=== PATIENT | male | born 1945 | race Caucasian/White ===

== ENCOUNTER 2021-01-10 21:12 | Inpatient (IN) | payer MEDICARE, MEDICAID ==
[~2021-01-10] VITALS: Ht 188 cm; Wt 136.7 kg
[~2021-01-10 21:12] MED LIST: CLOP75TA52 PO; FLUO40CA2 PO; FLUT16SP2 IH; GABA600T PO; OXYC20TA2 PO; PHEN100C PO; TIAG4TAB18 PO; TRAZ50TA66 PO; [UNRECOGNIZED DRUG - CODE] PO
[2021-01-10] MEDS ORDERED: SODIUM CHLORIDE FLUSH 10ML SYR IVF ONE (21:30)
--- NOTE | 2021-01-10 21:43 | NUR ---
[facility] [phone] CALLED AT THIS TIME PER PATIENT REQUEST. PATIENT JUST WANTED ME TO LET HER KNOW THAT HE IS OK.
[2021-01-10 22:11] LABS: BASOPHILS % (AUTO) 0 % (0-1); EOSINOPHILS % (AUTO) 2 % (1-7); LYMPHOCYTES % (AUTO) 25 % (22-44); MEAN CORPUSCULAR HEMOGLOBIN 28.3 pg (27.5-34.5); MEAN CORPUSCULAR HGB CONC 32.5 g/dL (33.2-36.2); MEAN PLATELET VOLUME 9.1 fL (7.4-10.4); MONOCYTES % (AUTO) 8 % (2-9); NEUTROPHILS % (AUTO) 65 % (42-75); PLATELET COUNT 284 x10^3/uL (130-400); RED BLOOD COUNT 4.26 x10^6/uL (4.38-5.82); RED CELL DISTRIBUTION WIDTH 16.6 % (9.4-14.8)
[2021-01-10 22:18] LABS: ALANINE AMINOTRANSFERASE 26 U/L (12-78); ALBUMIN 2.9 g/dL (3.4-5.0); ANION GAP 4 mmol/L (5-15); CALCIUM 8.9 mg/dL (8.5-10.1); CHLORIDE 106 mmol/L (98-107); CREATININE 1.27 mg/dL (0.7-1.3)
[2021-01-10 22:22] LABS: INTERNATIONAL NORMALIZED RATIO 1.02 (0.93-1.1); PROTHROMBIN TIME 10.9 Seconds (9.6-11.5)
[2021-01-10 22:28] LABS: ALKALINE PHOSPHATASE 104 U/L (45-117); BILIRUBIN,TOTAL 0.5 mg/dL (0.2-1.0); TOTAL PROTEIN 7.2 g/dL (6.4-8.2); TROPONIN I < 0.015 ng/mL (0.000-0.045)
--- NOTE | 2021-01-10 22:29 | NUR ---
HOSPITALIST AT BEDSIDE.
[2021-01-10] MEDS ORDERED: FUROSEMIDE 40 MG/4 ML IV ONE (22:30)
[2021-01-10] MEDS ORDERED: ASPIRIN 81 MG TABLET CHEW PO ONE (22:30)
[2021-01-10] MEDS ORDERED: ASPIRIN 81 MG TABLET CHEW ONE (22:40)
[2021-01-10] MEDS ORDERED: FUROSEMIDE 40 MG/4 ML ONE (22:40)
--- NOTE | 2021-01-10 22:45 | NUR ---
PATIENT PROVIDED WITH BLANKETS AND PILLOWS.
--- NOTE | 2021-01-10 22:53 | NUR ---
CALLED [facility] PATIENTS TO LET HER KNOW HE IS BEING ADMITTED.
[2021-01-10] MEDS ORDERED: POLYETHYLENE GLYCOL 17 GM PACKET PO PRN (23:00)
[2021-01-10] MEDS ORDERED: NITROGLYCERIN 0.4 MG/SPRAY SL PRN (23:00)
[2021-01-10] MEDS ORDERED: OXYcodone IR 5MG TABLET PO PRN (23:00)
[2021-01-10] MEDS ORDERED: DEXTROSE 4 GM TAB.CHEW PO PRN (23:00)
[2021-01-10] MEDS ORDERED: DEXTROSE 50%, 50ML SYRINGE IVPush PRN (23:00)
[2021-01-10] MEDS ORDERED: MELATONIN 5 MG TABLET PO PRN (23:00)
[2021-01-10] MEDS ORDERED: LABETALOL 5MG/ML, 20ML IVPush PRN (23:00)
[2021-01-10] MEDS ORDERED: ONDANSETRON 2MG/ML, 2ML IVPush PRN (23:00)
[2021-01-10] MEDS ORDERED: NITROGLYCERIN 0.4 MG BOTTLE (25 TABS) SL PRN (23:00)
[2021-01-10] MEDS ORDERED: ACETAMINOPHEN 325 MG TABLET PO PRN (23:00)
[2021-01-10] MEDS ORDERED: GLUCAGON 1 MG IM PRN (23:00)
--- NOTE | 2021-01-10 23:16 | NUR ---
REPORT GIVEN TO SKYE PETERSON.
[2021-01-10 23:46] VITALS: BP 192/99
[2021-01-11] VITALS: BP 166/94
[2021-01-11] MEDS ORDERED: hydrALAzine 20 MG/ML, 1ML IV PRN (00:30)
[2021-01-11] MEDS: ENOXAPARIN 30 MG/0.3 ML SQ SCH ×3 (00:48→22:07)
[2021-01-11] MEDS: FAMOTIDINE 20 MG/2 ML IVPush SCH ×3 (00:48→21:59)
[2021-01-11] MEDS: SODIUM CHLORIDE FLUSH 10ML SYR IVF SCH ×3 (00:48→22:08)
[2021-01-11] MEDS: INSULIN LISPRO 100 UNITS/ML, PEN SQ-INSULIN SCH ×5 (00:48→21:54)
[2021-01-11] MEDS ORDERED: LIDODERM 5% PATCH TD SCH (01:30)
[2021-01-11] MEDS: LIDODERM 5% PATCH TD PRN ×3 (04:27→23:22)
[2021-01-11 05:23] LABS: BASOPHILS % (AUTO) 1 % (0-1); EOSINOPHILS % (AUTO) 3 % (1-7); LYMPHOCYTES % (AUTO) 24 % (22-44); MEAN CORPUSCULAR HEMOGLOBIN 27.6 pg (27.5-34.5); MEAN CORPUSCULAR HGB CONC 32.2 g/dL (33.2-36.2); MONOCYTES % (AUTO) 9 % (2-9); NEUTROPHILS % (AUTO) 64 % (42-75); PLATELET COUNT 270 x10^3/uL (130-400); RED CELL DISTRIBUTION WIDTH 16.5 % (9.4-14.8)
[2021-01-11 05:33] LABS: ANION GAP 3 mmol/L (5-15); CALCIUM 8.9 mg/dL (8.5-10.1); CHLORIDE 105 mmol/L (98-107); CREATININE 1.28 mg/dL (0.7-1.3)
[2021-01-11 05:36] LABS: TROPONIN I < 0.015 ng/mL (0.000-0.045)
[2021-01-11 08:05] VITALS: BP 141/65
[2021-01-11] MEDS: FUROSEMIDE 40 MG/4 ML IV SCH ×2 (08:14→17:36)
[2021-01-11 14:00] VITALS: BP 154/71
[2021-01-11] MEDS ORDERED: PREG150C PO (15:50)
[2021-01-11] MEDS: CEPHALEXIN 500 MG CAPSULE PO SCH ×2 (17:36→22:07)
[2021-01-11] MEDS: PREGABALIN 150 MG CAPSULE PO SCH ×2 (17:36→22:06)
[2021-01-11] MEDS: morphine SULFATE ORAL.CONC 20 MG/ML PO SCH ×2 (17:37→22:06)
[2021-01-11 19:48] VITALS: BP 135/56
[2021-01-11] MEDS ORDERED: TRAZODONE 100MG TABLET PO SCH (21:00)
[2021-01-11] MEDS: OXYcodone IR 30 MG TABLET PO SCH (22:00)
[2021-01-12 01:32] VITALS: BP 146/84
[2021-01-12] MEDS: CEPHALEXIN 500 MG CAPSULE PO SCH ×3 (06:08→15:57)
[2021-01-12] MEDS: OXYcodone IR 30 MG TABLET PO SCH ×3 (06:09→15:58)
[2021-01-12] MEDS: FUROSEMIDE 40 MG/4 ML IV SCH ×2 (07:45→16:06)
[2021-01-12] MEDS: INSULIN LISPRO 100 UNITS/ML, PEN SQ-INSULIN SCH ×3 (07:45→15:59)
[2021-01-12 07:54] VITALS: BP 112/70
[2021-01-12] MEDS: FAMOTIDINE 20 MG/2 ML IVPush SCH (08:14)
[2021-01-12] MEDS: PREGABALIN 150 MG CAPSULE PO SCH ×2 (08:25→15:57)
[2021-01-12] MEDS ORDERED: FLUOXETINE HCL 20 MG CAPSULE PO SCH (09:00)
[2021-01-12] MEDS ORDERED: FLUTICASONE NASAL SPRAY 16GM NAS SCH (09:00)
[2021-01-12] MEDS ORDERED: CLOPIDOGREL 75 MG TABLET PO SCH (09:00)
[2021-01-12] MEDS: SODIUM CHLORIDE FLUSH 10ML SYR IVF SCH (09:52)
[2021-01-12] MEDS: morphine SULFATE ORAL.CONC 20 MG/ML PO SCH (09:53)
[2021-01-12] MEDS ORDERED: CEPH-376 PO (10:28)
[2021-01-12] MEDS ORDERED: POTA20TA14 PO (10:28)
[2021-01-12] MEDS ORDERED: FURO-93 PO (10:28)
[2021-01-12] MEDS: ENOXAPARIN 30 MG/0.3 ML SQ SCH (12:53)
[2021-01-12 13:00] VITALS: BP 132/81
[2021-01-12] MEDS ORDERED: morphine SULFATE 15 MG TAB.IR PO SCH (16:30)
== END 2021-01-12 18:17 | disposition home or self-care (01) | DRG 189 ==
LOC: ED 21:48 → EDIP 22:22 → 5SO 23:37 → 3N 01-11 19:23
PROVIDERS: ADMIT Internal Medicine; ATTEND Internal Medicine
DX: J96.21 Acute and chronic respiratory failure with hypoxia (principal); L03.119 Cellulitis of unspecified part of limb; F11.20 Opioid dependence, uncomplicated; I25.110 Atherosclerotic heart disease of native coronary artery with unstable angina pectoris; I50.32 Chronic diastolic (congestive) heart failure; E66.01 Morbid (severe) obesity due to excess calories; G40.909 Epilepsy, unspecified, not intractable, without status epilepticus; E11.9 Type 2 diabetes mellitus without complications; F39 Unspecified mood [affective] disorder; G47.33 Obstructive sleep apnea (adult) (pediatric); I11.0 Hypertensive heart disease with heart failure; M19.90 Unspecified osteoarthritis, unspecified site; E78.5 Hyperlipidemia, unspecified; J44.9 Chronic obstructive pulmonary disease, unspecified; Z87.891 Personal history of nicotine dependence; Z95.5 Presence of coronary angioplasty implant and graft; Z68.38 Body mass index [BMI] 38.0-38.9, adult; I25.2 Old myocardial infarction; Z99.81 Dependence on supplemental oxygen; Z90.49 Acquired absence of other specified parts of digestive tract
CPT/HCPCS: 36415; 71045; 80048; 80053; 82962; 83735; 83880; 84443; 84484; 85025; 85610; 93005; 96374; G0378; J1650; J1940; Q9957; C8924; J1815